=== PATIENT | female | born 1970 | race Caucasian/White ===

== ENCOUNTER 2019-02-05 17:57 | Emergency (ER) | payer OTHER ==
[~2019-02-05] VITALS: Ht 170.2 cm; Wt 74.8 kg
[2019-02-05] MEDS ORDERED: SYNTHROID50 MCG (18:07)
== END 2019-02-05 20:57 | disposition home or self-care (01) ==
LOC: ER 17:57
DX: G89.11 Acute pain due to trauma (principal); M25.561 Pain in right knee

== ENCOUNTER 2019-03-31 16:41 | Outpatient (CLI) | payer OTHER ==
[~2019-03-31 16:41] MED LIST: SYNTHROID50 MCG
== END 2019-03-31 16:48 | disposition home or self-care (01) ==
LOC: RAD 16:41
DX: M24.512 Contracture, left shoulder (principal); M24.511 Contracture, right shoulder

== ENCOUNTER 2019-05-15 12:49 | Outpatient (CLI) | payer OTHER | END 2019-05-15 12:52 | disposition home or self-care (01) | LOC: RAD 12:49 | DX: J06.9 Acute upper respiratory infection, unspecified (principal) ==

== ENCOUNTER 2019-07-23 14:05 | Outpatient (CLI) | payer OTHER | END 2019-07-23 14:22 | disposition home or self-care (01) | LOC: MRI 14:05 | DX: M41.9 Scoliosis, unspecified (principal) ==

== ENCOUNTER 2019-07-24 18:02 | Outpatient (CLI) | payer OTHER | END 2019-07-24 18:41 | disposition home or self-care (01) | LOC: LAB 18:02 | DX: K74.60 Unspecified cirrhosis of liver (principal) ==

== ENCOUNTER 2019-07-27 23:37 | Emergency (ER) | payer OTHER ==
[~2019-07-27] VITALS: Ht 167.6 cm; Wt 83.5 kg
== END 2019-07-28 06:16 | disposition home or self-care (01) ==
LOC: ER 23:37
DX: L50.0 Allergic urticaria (principal); T50.8X5A Adverse effect of diagnostic agents, initial encounter; Y92.89 Other specified places as the place of occurrence of the external cause

== ENCOUNTER → 2019-07-27 | Outpatient (CLI) | payer OTHER | END | disposition home or self-care (01) | LOC: TOM 07-24 10:15 | DX: K42.9 Umbilical hernia without obstruction or gangrene (principal); Q44.6 Cystic disease of liver; L55.0 Sunburn of first degree | CPT/HCPCS: 74175 ==

== ENCOUNTER → 2019-09-25 09:30 | Outpatient (CLI) | payer OTHER | END | disposition home or self-care (01) | LOC: LAB 09:30 | DX: E03.8 Other specified hypothyroidism (principal); E04.8 Other specified nontoxic goiter ==

== ENCOUNTER 2019-12-02 09:05 | Outpatient (CLI) | payer OTHER | END 2019-12-02 09:14 | disposition home or self-care (01) | LOC: LAB 09:05 | DX: E03.8 Other specified hypothyroidism (principal); I11.9 Hypertensive heart disease without heart failure; R42 Dizziness and giddiness; R73.01 Impaired fasting glucose ==

== ENCOUNTER 2019-12-02 10:12 | Outpatient (CLI) | payer OTHER | END 2019-12-02 10:20 | disposition home or self-care (01) | LOC: SONOGRAMA 10:12 | DX: E03.8 Other specified hypothyroidism (principal) ==

== ENCOUNTER 2020-08-31 09:49 | Outpatient (CLI) | payer OTHER | END 2020-08-31 10:00 | disposition home or self-care (01) | LOC: SONOGRAMA 09:49 → MAMO-SONO 10:45 | PROVIDERS: ATTEND Internal Medicine | DX: Q44.6 Cystic disease of liver (principal); R93.5 Abnormal findings on diagnostic imaging of other abdominal regions, including retroperitoneum; E03.8 Other specified hypothyroidism ==

== ENCOUNTER → 2020-08-31 11:36 | Outpatient (CLI) | payer OTHER | END | disposition home or self-care (01) | LOC: LAB 11:36 | PROVIDERS: ATTEND Internal Medicine | DX: R93.89 Abnormal findings on diagnostic imaging of other specified body structures (principal) ==

== ENCOUNTER 2020-10-03 10:30 | Outpatient (CLI) | payer OTHER | END 2020-10-03 10:39 | disposition home or self-care (01) | LOC: LAB 10:30 | PROVIDERS: ATTEND Obstetrics & Gynecology | DX: E34.8 Other specified endocrine disorders (principal); E78.49 Other hyperlipidemia; N95.1 Menopausal and female climacteric states; E23.6 Other disorders of pituitary gland; R19.00 Intra-abdominal and pelvic swelling, mass and lump, unspecified site; N39.0 Urinary tract infection, site not specified; E55.9 Vitamin D deficiency, unspecified; N73.8 Other specified female pelvic inflammatory diseases; A60.04 Herpesviral vulvovaginitis; Z34.90 Encounter for supervision of normal pregnancy, unspecified, unspecified trimester; N91.3 Primary oligomenorrhea ==

== ENCOUNTER → 2020-10-03 | Outpatient (CLI) | payer OTHER | END | disposition home or self-care (01) | LOC: MAMO-SONO 12-02 11:00 | PROVIDERS: ATTEND Obstetrics & Gynecology | DX: Z12.31 Encounter for screening mammogram for malignant neoplasm of breast (principal); N64.59 Other signs and symptoms in breast ==

== ENCOUNTER → 2020-12-14 10:53 | Outpatient (CLI) | payer OTHER | END | disposition home or self-care (01) | LOC: LAB 10:53 | PROVIDERS: ATTEND Internal Medicine | DX: E03.8 Other specified hypothyroidism (principal); E78.89 Other lipoprotein metabolism disorders; E55.9 Vitamin D deficiency, unspecified; I10 Essential (primary) hypertension ==

== ENCOUNTER 2021-01-02 13:16 | Outpatient (CLI) | payer OTHER | END 2021-01-02 13:20 | disposition home or self-care (01) | LOC: SONOGRAMA 13:16 → MAMO-SONO 13:45 | PROVIDERS: ATTEND Obstetrics & Gynecology | DX: R10.2 Pelvic and perineal pain (principal); R10.31 Right lower quadrant pain ==

== ENCOUNTER 2021-06-07 09:19 | Outpatient (CLI) | payer OTHER | END 2021-06-07 09:30 | disposition home or self-care (01) | LOC: LAB 09:19 | PROVIDERS: ATTEND Internal Medicine | DX: E03.8 Other specified hypothyroidism (principal); I10 Essential (primary) hypertension; E11.65 Type 2 diabetes mellitus with hyperglycemia; E55.9 Vitamin D deficiency, unspecified ==

== ENCOUNTER 2021-08-01 10:37 | Outpatient (CLI) | payer OTHER | END 2021-08-01 10:38 | disposition home or self-care (01) | LOC: LAB 10:37 | PROVIDERS: ATTEND Obstetrics & Gynecology | DX: E78.49 Other hyperlipidemia (principal); N91.2 Amenorrhea, unspecified; E34.8 Other specified endocrine disorders; N95.1 Menopausal and female climacteric states; E23.6 Other disorders of pituitary gland; R19.00 Intra-abdominal and pelvic swelling, mass and lump, unspecified site; N39.0 Urinary tract infection, site not specified; E55.9 Vitamin D deficiency, unspecified; N73.8 Other specified female pelvic inflammatory diseases; A60.04 Herpesviral vulvovaginitis; Z34.90 Encounter for supervision of normal pregnancy, unspecified, unspecified trimester ==

== ENCOUNTER 2021-08-01 12:06 | Outpatient (CLI) | payer OTHER | END 2021-08-01 12:25 | disposition home or self-care (01) | LOC: MAMO-SONO 12:06 | PROVIDERS: ATTEND Obstetrics & Gynecology | DX: N64.4 Mastodynia (principal); N63.0 Unspecified lump in unspecified breast; N93.8 Other specified abnormal uterine and vaginal bleeding ==

== ENCOUNTER 2021-09-08 13:38 | Outpatient (CLI) | payer OTHER | END 2021-09-08 13:42 | disposition home or self-care (01) | LOC: SONOGRAMA 13:38 | PROVIDERS: ATTEND Family Medicine | DX: N64.59 Other signs and symptoms in breast (principal) ==

== ENCOUNTER 2021-10-05 14:40 | Outpatient (CLI) | payer OTHER | END 2021-10-05 14:59 | disposition home or self-care (01) | LOC: MAMO-SONO 14:40 | PROVIDERS: ATTEND Family Medicine | DX: Z12.31 Encounter for screening mammogram for malignant neoplasm of breast (principal) ==

== ENCOUNTER → 2021-11-29 13:07 | Outpatient (CLI) | payer OTHER | END | disposition home or self-care (01) | LOC: LAB 13:07 | DX: Z20.828 Contact with and (suspected) exposure to other viral communicable diseases (principal) ==

== ENCOUNTER → 2022-09-07 09:46 | Outpatient (CLI) | payer OTHER | END | disposition home or self-care (01) | LOC: LAB 09:46 | PROVIDERS: ATTEND Internal Medicine | DX: E11.65 Type 2 diabetes mellitus with hyperglycemia (principal); E78.5 Hyperlipidemia, unspecified; I10 Essential (primary) hypertension; E03.8 Other specified hypothyroidism; N95.1 Menopausal and female climacteric states ==

== ENCOUNTER 2022-09-07 12:53 | Outpatient (CLI) | payer OTHER | END 2022-09-07 13:02 | disposition home or self-care (01) | LOC: SONOGRAMA 12:53 | PROVIDERS: ATTEND Internal Medicine | DX: E04.2 Nontoxic multinodular goiter (principal) ==

== ENCOUNTER → 2022-11-01 07:06 | Outpatient (CLI) | payer OTHER | END | disposition home or self-care (01) | LOC: LAB 07:06 | DX: B19.10 Unspecified viral hepatitis B without hepatic coma (principal) ==

== ENCOUNTER → 2022-11-22 | Outpatient (CLI) | payer OTHER | END | disposition home or self-care (01) | LOC: MAMO-SONO 14:02 | PROVIDERS: ATTEND Obstetrics & Gynecology | DX: N64.4 Mastodynia (principal); N65.0 Deformity of reconstructed breast ==